=== PATIENT | female | born 1960 | race Caucasian/White ===

== ENCOUNTER 2016-08-16 08:39 | Inpatient (IN) | payer BC ==
[~2016-08-16] VITALS: Ht 162.6 cm; Wt 59.1 kg
[~2016-08-16 08:39] MED LIST: CLARITIN,ALAVAR10 MG PO; TAMOXIFEN CITRA20 MG PO
[2016-08-16 11:14] VITALS: BP 140/62
[2016-08-16 16:26] VITALS: BP 149/76
[2016-08-16 19:21] LABS: HEMATOCRIT 36.2 % (36.0-46.0); MCH 32.5 PG (29.0-34.0); MCHC 33.7 G/DL (30.0-36.0); MCV 96.5 FL (83-99); RBC DIS.WIDTH-CV 11.9 % (11.8-14.6); RBC DIS.WIDTH-SD 42.4 % (39-53); RED BLOOD COUNT 3.75 M/uL (3.80-5.20)
[2016-08-16 20:26] VITALS: BP 149/71
[2016-08-16 20:36] LABS: PLATELET COUNT 161 K/uL (156-360); WHITE BLOOD COUNT 10.7 K/uL (4.1-10.2)
[2016-08-16 20:37] LABS: ANION GAP 9 MEQ/L (2-14); CHLORIDE 105 MEQ/L (99-109); GFR ESTIMATE (CALCULATED) > 59 mL/min/; GLUCOSE 150 mg/dL (70-99); SAMPLE HEMOLYSIS CHECK 0; SAMPLE ICTERIC CHECK 0; SAMPLE LIPEMIA CHECK 0; SODIUM 137 MEQ/L (136-147); UREA NITROGEN (BUN) 9 mg/dL (9-23)
[2016-08-16 23:45] VITALS: BP 126/68
[2016-08-17 06:38] LABS: HEMATOCRIT 34.5 % (36.0-46.0); MCH 32.3 PG (29.0-34.0); MCHC 33.6 G/DL (30.0-36.0); MCV 96.1 FL (83-99); MEAN PLAT.VOLUME 11.1 uM^3 (9.5-12.4); PLATELET COUNT 191 K/uL (156-360); RBC DIS.WIDTH-SD 42.2 % (39-53); RED BLOOD COUNT 3.59 M/uL (3.80-5.20); WHITE BLOOD COUNT 11.4 K/uL (4.1-10.2)
[2016-08-17 07:02] LABS: ANION GAP 8 MEQ/L (2-14); CHLORIDE 105 MEQ/L (99-109); GFR ESTIMATE (CALCULATED) > 59 mL/min/; GLUCOSE 116 mg/dL (70-99); SAMPLE HEMOLYSIS CHECK 0; SAMPLE ICTERIC CHECK 0; SAMPLE LIPEMIA CHECK 0; SODIUM 137 MEQ/L (136-147); UREA NITROGEN (BUN) 6 mg/dL (9-23)
[2016-08-17 08:00] VITALS: BP 129/69
[2016-08-17 12:00] VITALS: BP 150/68
[2016-08-17 15:20] VITALS: BP 155/70
[2016-08-17 19:12] VITALS: BP 167/70
[2016-08-18 00:32] VITALS: BP 132/61
[2016-08-18 03:34] VITALS: BP 157/67
[2016-08-18 06:48] LABS: HEMATOCRIT 34.9 % (36.0-46.0); MCH 32.7 PG (29.0-34.0); MCHC 33.8 G/DL (30.0-36.0); MCV 96.7 FL (83-99); MEAN PLAT.VOLUME 11.1 uM^3 (9.5-12.4); PLATELET COUNT 178 K/uL (156-360); RBC DIS.WIDTH-CV 12.1 % (11.8-14.6); RBC DIS.WIDTH-SD 42.8 % (39-53); RED BLOOD COUNT 3.61 M/uL (3.80-5.20); WHITE BLOOD COUNT 11.7 K/uL (4.1-10.2)
[2016-08-18 07:09] LABS: ANION GAP 8 MEQ/L (2-14); CHLORIDE 103 MEQ/L (99-109); GFR ESTIMATE (CALCULATED) > 59 mL/min/; GLUCOSE 109 mg/dL (70-99); POTASSIUM 3.7 MEQ/L (3.7-5.4); SAMPLE HEMOLYSIS CHECK 0; SAMPLE ICTERIC CHECK 0; SAMPLE LIPEMIA CHECK 0; SODIUM 136 MEQ/L (136-147); UREA NITROGEN (BUN) 7 mg/dL (9-23)
[2016-08-18] MEDS ORDERED: TRAMADOL HCL50 MG PO (08:54)
== END 2016-08-18 09:52 | disposition home or self-care (01) | DRG 735 ==
LOC: 2SOUTH 08:39 → EDSTATUS 11:17 → SDC 11:17 → 2SOUTH 11:20 → 2EAST 16:07
PROVIDERS: Obstetrics & Gynecology Gynecologic Oncology
DX: D06.9 Carcinoma in situ of cervix, unspecified (principal); E78.2 Mixed hyperlipidemia; J44.9 Chronic obstructive pulmonary disease, unspecified; E83.110 Hereditary hemochromatosis; F17.200 Nicotine dependence, unspecified, uncomplicated; Z85.3 Personal history of malignant neoplasm of breast; Z92.3 Personal history of irradiation
CPT/HCPCS: 36415; 80048; 85027; 86850; 86900; 86901; 86920; 88305; 88307; J0131; J1100; J1170; J1580; J1650; J2250; J2270; J2405; J2710; J2765; J3010; J7050; P9045; S0030

== ENCOUNTER 2016-08-21 16:34 | Emergency (ER) | payer BC ==
[~2016-08-21] VITALS: Ht 162.6 cm; Wt 59.8 kg
[~2016-08-21 16:34] MED LIST changes: +TRAMADOL HCL50 MG PO
[2016-08-21 17:32] LABS: ADD MIUA? YES; BILIRUBIN NEGATIVE; BLOOD MODERATE; COLOR YELLOW ((YELLOW)); GLUCOSE (STRIP) NEGATIVE; KETONES NEGATIVE; LEUKOCYTES NEGATIVE; NITRITE NEGATIVE; PROTEIN (STRIP) NEGATIVE; SPECIFIC GRAVITY 1.008 (1.000-1.030); UROBILINOGEN 0.2 MG/DL (0.2-1.0)
[2016-08-21 17:39] LABS: BACTERIA NONE SEEN /HPF; EPITHELIAL CELLS NONE SEEN /HPF; MUCUS TRACE /LPF; RED BLOOD CELLS 0-5 /HPF (0-5); UCUL ADDED? NO; WHITE BLOOD CELLS 0-5 /HPF (0-5)
[2016-08-21 17:51] LABS: MCH 32.4 PG (29.0-34.0); MCHC 33.9 G/DL (30.0-36.0); MCV 95.7 FL (83-99); RBC DIS.WIDTH-CV 11.7 % (11.8-14.6); RBC DIS.WIDTH-SD 38.9 % (39-53); RED BLOOD COUNT 3.76 M/uL (3.80-5.20)
[2016-08-21 18:00] LABS: CHLORIDE 106 mEq/L (99-109); POTASSIUM 3.8 mEq/L (3.7-5.4); SODIUM 141 mEq/L (136-147)
[2016-08-21 18:02] LABS: GLUCOSE 121 mg/dL (70-99)
[2016-08-21 18:03] LABS: ANION GAP 10 MEQ/L (2-14)
[2016-08-21 18:04] LABS: TOTAL BILIRUBIN 0.5 mg/dL (0.0-1.0)
[2016-08-21 18:05] LABS: MEAN PLAT.VOLUME 10.8 uM^3 (9.5-12.4); PLATELET COUNT 272 K/uL (156-360)
[2016-08-21 18:06] LABS: ALKALINE PHOSPHATASE 59 IU/L (3-129); GFR ESTIMATE (CALCULATED) > 59 mL/min/
[2016-08-21 18:07] LABS: UREA NITROGEN (BUN) 9 mg/dL (9-23)
[2016-08-21] MEDS ORDERED: LEVAQUIN750 MG PO (19:04)
[2016-08-21 19:21] VITALS: BP 107/66
== END 2016-08-21 19:28 | disposition home or self-care (01) ==
LOC: EME 16:34
PROVIDERS: Physician Assistant
PROC: 0T2BX0Z Change Drainage Device in Bladder, External Approach (ICD-10-PCS; principal; 2016-08-21)
DX: T83.038A Leakage of other urinary catheter, initial encounter (principal); R73.9 Hyperglycemia, unspecified; R30.0 Dysuria; R50.9 Fever, unspecified; Z98.890 Other specified postprocedural states; Z90.710 Acquired absence of both cervix and uterus; C50.911 Malignant neoplasm of unspecified site of right female breast; C50.912 Malignant neoplasm of unspecified site of left female breast; C79.82 Secondary malignant neoplasm of genital organs; F17.200 Nicotine dependence, unspecified, uncomplicated
CPT/HCPCS: 80053; 81003; 83605; 85027; 87040; 87086; 99281; 99284